=== PATIENT | male | born 1975 | race Caucasian/White ===

== ENCOUNTER 2018-09-14 22:32 | Emergency (ER) | payer SELFPAY ==
[~2018-09-14] VITALS: Ht 165.1 cm; Wt 121.0 kg
[2018-09-14 22:37] VITALS: Ht 165.1 cm; Wt 121.0 kg
[2018-09-15] MEDS ORDERED: ONDANSETRON 4 MG INJ IV STA (00:42)
[2018-09-15] MEDS ORDERED: SOD CHLORIDE 0.9% 500 ML IV STA (00:42)
[2018-09-15] MEDS ORDERED: morphine 4 MG/ML VIAL IV STA (00:42)
[2018-09-15] MEDS ORDERED: OMEP20CA16 PO (03:59)
[2018-09-15] MEDS ORDERED: LISI-471 PO (03:59)
[2018-09-15] MEDS ORDERED: TRAM50TA2 PO (05:05)
[2018-09-15] MEDS ORDERED: CIPR500T4 PO (05:05)
--- NOTE | 2018-09-15 05:11 | ERD ---
ER Documentation Chief Complaint Chief Complaint abdominal pain x 5 days, worse x 2 days HPI Is a 42 of abdominal pain on and off for the past 3 to 4 days is getting progressively worse. He said it is gotten worse over the past 2 days especially. Denies fevers or chills. He does have some urgency frequency of urination. Denies any fevers. Denies any nausea or vomiting. Denies any other current complaints. ROS All systems reviewed and are negative except as per history of present illness. Medications Home Meds Active Scripts Tramadol HCl (Tramadol HCl) 50 Mg Tablet, 50 MG PO Q4 PRN for PAIN, #20 TAB Prov:JUAN ANTONIO REDMAN. 09/15/18 Ciprofloxacin Hcl* (Ciprofloxacin Hcl*) 500 Mg Tablet, 500 MG PO BID for 5 Days, TAB Prov:JUAN ANTONIO REDMAN 09/15/18 Reported Medications Omeprazole* (Omeprazole*) 20 Mg Capsule.dr, 20 MG PO QAM, #30 CAP 09/15/18 Lisinopril* (Lisinopril*) 20 Mg Tablet, 20 MG PO QAM, #30 TAB 09/15/18 Allergies Allergies: Coded Allergies: No Known Drug Allergies (Verified Allergy, Unknown, 09/14/18) PMhx/Soc Medical and Surgical Hx: pt denies Surgical Hx History of Surgery: No Anesthesia Reaction: No Hx Neurological Disorder: No Hx Respiratory Disorders: No Hx Cardiac Disorders: Yes (HTN) Hx Psychiatric Problems: No Hx Miscellaneous Medical Probl: Yes (Anxiety) Hx Alcohol Use: Yes (social) Hx Substance Use: No Hx Tobacco Use: No Smoking Status: Never smoker Physical Exam Vitals Vital Signs Date Temp Pulse Resp B/P (MAP) Pulse Ox O2 O2 Flow FiO2 Time Delivery Rate 09/14/18 98.0 75 18 141/84 97 22:37 (103) Physical Exam Const: No acute distress Head: Atraumatic Eyes: Normal Conjunctiva ENT: Normal External Ears, Nose and Mouth. Neck: Full range of motion. No meningismus. Resp: Clear to auscultation bilaterally Cardio: Regular rate and rhythm, no murmurs Abd: Soft, non tender, non distended. Normal bowel sounds Skin: No petechiae or rashes Back: No midline or flank tenderness Ext: No cyanosis, or edema Neur: Awake and alert Psych: Normal Mood and Affect Result Diagram: 09/15/18 0045 09/15/18 0045 Results 24 hrs Laboratory Tests Test 09/15/18 00:45 White Blood Count 10.0 10^3/ul Red Blood Count 4.70 10^6/ul Hemoglobin 13.9 g/dl Hematocrit 40.9 % Mean Corpuscular Volume 87.0 fl Mean Corpuscular Hemoglobin 29.6 pg Mean Corpuscular Hemoglobin Concent 34.0 g/dl Red Cell Distribution Width 13.0 % Platelet Count 264 10^3/UL Mean Platelet Volume 9.8 fl Immature Granulocytes % 0.300 % Neutrophils % 59.5 % Lymphocytes % 26.4 % Monocytes % 8.6 % Eosinophils % 4.8 % Basophils % 0.4 % Nucleated Red Blood Cells % 0.0 /100WBC Immature Granulocytes # 0.030 10^3/ul Neutrophils # 5.9 10^3/ul Lymphocytes # 2.6 10^3/ul Monocytes # 0.9 10^3/ul Eosinophils # 0.5 10^3/ul Basophils # 0.0 10^3/ul Nucleated Red Blood Cells # 0.0 10^3/ul Urine Color YELLOW Urine Clarity CLEAR Urine pH 6.0 Urine Specific [place] 1.023 Urine Ketones NEGATIVE mg/dL Urine Nitrite NEGATIVE mg/dL Urine Bilirubin NEGATIVE mg/dL Urine Urobilinogen NEGATIVE mg/dL Urine Leukocyte Esterase NEGATIVE Mariel/ul Urine Hemoglobin NEGATIVE mg/dL Urine Glucose NEGATIVE mg/dL Urine Total Protein NEGATIVE mg/dl Sodium Level 140 mmol/L Potassium Level 3.4 mmol/L Chloride Level 101 mmol/L Carbon Dioxide Level 31 mmol/L Anion Gap 8 Blood Urea Nitrogen 21 mg/dl Creatinine 0.93 mg/dl Est Glomerular Filtrat Rate mL/min > 60 mL/min Glucose Level 104 mg/dl Calcium Level 9.8 mg/dl Total Bilirubin 0.9 mg/dl Direct Bilirubin 0.00 mg/dl Indirect Bilirubin 0.9 mg/dl Aspartate Amino Transf (AST/SGOT) 36 IU/L Alanine Aminotransferase (ALT/SGPT) 37 IU/L Alkaline Phosphatase 73 IU/L Total Protein 7.5 g/dl Albumin 4.2 g/dl Globulin 3.30 g/dl Albumin/Globulin Ratio 1.27 Lipase 41 U/L Current Medications Medications Dose Sig/Alice Start Time Status Last (Trade) Ordered Route PRN Stop Time Admin Dose Reason Admin Sodium 500 ml @ Q1H STAT 09/15/18 DC 09/15/18 Chloride 500 mls/hr IV 00:42 09/15/18 00:51 01:41 Morphine 4 mg ONCE STAT 09/15/18 DC 09/15/18 Sulfate IV 00:42 09/15/18 00:51 (morphine) 00:43 Ondansetron 4 mg ONCE STAT 09/15/18 DC 09/15/18 HCl (Zofran IV 00:42 09/15/18 00:51 Inj) 00:43 Procedures/MDM Medical decision making: Patient's gastrointestinal symptoms have stabilized while in the department. No evidence of severe dehydration, sepsis, or surgical abdomen. Extensive discussion with family and patient that occult disease cannot be ruled out. 8 hour recheck for repeat abdominal exam is planned. Departure Diagnosis: Primary Impression: Abdominal pain Abdominal location: unspecified location Qualified Codes: R10.9 - Unspecified abdominal pain Condition: Serious Patient Instructions: Abdominal Pain JUAN ANTONIO REDMAN Sep 15, 2018 05:11
[2018-09-15 05:43] VITALS: BP 127/68; PULSE 66; RESP 19
== END 2018-09-15 05:43 | disposition home or self-care (01) ==
LOC: E/R 22:32
DX: R10.9 Unspecified abdominal pain (principal); I10 Essential (primary) hypertension
CPT/HCPCS: 36415; 71045; 74176; 80053; 81003; 83690; 85025; 96374; 96375; 99285; J2270; J2405; J7040